=== PATIENT | male | born 1985 | race Caucasian/White ===

== ENCOUNTER 2017-04-02 00:52 | Emergency (ER) | payer OTHER ==
[2017-04-02] MEDS ORDERED: SODIUM CHLORIDE 0.9% 1,000 ML IV STA (01:40)
[2017-04-02] MEDS ORDERED: ONDANSETRON 4 MG/2 ML VIAL IVP STA (01:40)
[2017-04-02] MEDS ORDERED: KETOROLAC 30 MG/ML 1 ML VIAL IVP STA (01:40)
--- NOTE | 2017-04-02 02:05 | ED ---
Abdominal Pain HPI - General Chief Complaint: Abdominal Pain Stated Complaint: abd pain Time Seen by Provider: 04/02/17 01:05 Source: patient Mode of arrival: ambulatory Limitations: no limitations - History of Present Illness Initial Comments: 31-year-old male patient presented to the emergency department today for evaluation of left lower quadrant abdominal pain that radiated into his left lower back. Patient states that the pain does radiate down into the left groin as well. He states that symptoms started a few hours ago with a dull achiness side and progressed to severe sharp stabbing pain. He states that he has had symptoms similar to this one time in the past or was diagnosed with muscle spasms of the abdomen. He states he has vomited numerous times since pain onset. He states he does feel clammy. He denies any fever or chills. Denies any constipation or diarrhea. He denies any hematuria, dysuria, urinary urgency , urinary frequency. Patient denies any recent rash, shortness breath, chest pain, numbness, tingling, dizziness, weakness, headache, visual changes, or any other complaints. - Related Data Previous Rx's Medication Instructions Recorded Dicyclomine [Bentyl] 20 mg PO QID #24 tablet 05/27/15 Hydrocodone/Acetaminophen [[place] 1 tab PO Q6HR PRN #15 tab 04/02/17 5-325] Ibuprofen [Motrin] 600 mg PO Q8HR PRN #30 tab 04/02/17 Ondansetron [Zofran ODT] 4 mg PO Q8HR PRN #10 tab 04/02/17 Tamsulosin HCl [Flomax] 0.4 mg PO DAILY #7 cap 04/02/17 Allergies Allergy/AdvReac Type Severity Reaction Status Date / Time No Known Allergies Allergy Verified 04/02/17 00:57 Review of Systems ROS Statement: Those systems with pertinent positive or pertinent negative responses have been documented in the HPI. ROS Other: All systems not noted in ROS Statement are negative. Past Medical History Past Medical History: No Reported History History of Any Multi-Drug Resistant Organisms: None Reported Past Surgical History: No Surgical Hx Reported Past Psychological History: No Psychological Hx Reported Smoking Status: Current every day smoker Past Alcohol Use History: None Reported Past Drug Use History: Marijuana General Exam Limitations: no limitations General appearance: alert, other (This is a well-developed, well-nourished adult male patient in mild distress related to pain. Vital signs upon presentation are temperature 98.3F, pulse 81, respirations 16, blood pressure 131/78, pulse ox 99% on room air.) Eye exam: Present: normal appearance, PERRL, EOMI. Absent: scleral icterus, conjunctival injection, periorbital swelling ENT exam: Present: normal exam, normal oropharynx, mucous membranes moist Respiratory exam: Present: normal lung sounds bilaterally. Absent: respiratory distress, wheezes, rales, rhonchi, stridor Cardiovascular Exam: Present: regular rate, normal rhythm, normal heart sounds. Absent: systolic murmur, diastolic murmur, rubs, gallop, clicks GI/Abdominal exam: Present: soft, normal bowel sounds. Absent: distended, tenderness, guarding, rebound, rigid Back exam: Present: normal inspection. Absent: CVA tenderness (R), CVA tenderness (L) Neurological exam: Present: alert, oriented X3, CN II-XII intact Psychiatric exam: Present: normal affect, normal mood Skin exam: Present: warm, dry, intact, normal color. Absent: rash Course Vital Signs 04/02/17 00:54 Temperature 98.3 F Pulse Rate 81 Respiratory 16 Rate Blood Pressure 131/78 O2 Sat by Pulse 99 Oximetry Medical Decision Making - Medical Decision Making 31-year-old male patient presents to the emergency department today for evaluation of left flank pain that radiated into the left lower abdomen and into his groin. Physical examination was unremarkable. Urinalysis did show large amount of blood. Labs were otherwise unremarkable. KUB x-ray of the abdomen did show constipation-type pattern. CT the abdomen and pelvis did show a 4 mm partially obstructing stone in the left ureter. As well as multiple stones in bilateral kidneys. Patient will be discharged home today with prescriptions for pain management, nausea management, and Flomax. He is instructed to follow-up with urologist as possible. He is instructed to return here immediately if he develops any new, worsening, or concerning symptoms. He verbalizes understanding and agrees with this plan. - Lab Data Result diagrams: 04/02/17 01:38 04/02/17 01:38 Lab Results 04/02/17 04/02/17 04/02/17 Range/Units 01:38 01:38 01:38 WBC 10.3 (3.8-10.6) k/uL RBC 4.93 (4.30-5.90) m/uL Hgb 15.7 (13.0-17.5) gm/dL Hct 47.6 (39.0-53.0) % MCV 96.6 (80.0-100.0) fL MCH 31.8 (25.0-35.0) pg MCHC 32.9 (31.0-37.0) g/dL RDW 13.1 (11.5-15.5) % Plt Count 223 (150-450) k/uL Neutrophils % 54 % Lymphocytes % 31 % Monocytes % 8 % Eosinophils % 4 % Basophils % 1 % Neutrophils # 5.5 (1.3-7.7) k/uL Lymphocytes # 3.2 (1.0-4.8) k/uL Monocytes # 0.9 (0-1.0) k/uL Eosinophils # 0.4 (0-0.7) k/uL Basophils # 0.1 (0-0.2) k/uL Sodium 141 (137-145) mmol/L Potassium 4.0 (3.5-5.1) mmol/L Chloride 103 (98-107) mmol/L Carbon Dioxide 26 (22-30) mmol/L Anion Gap 12 mmol/L BUN 16 (9-20) mg/dL Creatinine 1.00 (0.66-1.25) mg/dL Est GFR (MDRD) Af Amer >60 (>60 ml/min/1.73 sqM) Est GFR (MDRD) Non-Af >60 (>60 ml/min/1.73 sqM) Glucose 106 H (74-99) mg/dL Calcium 10.3 H (8.4-10.2) mg/dL Total Bilirubin 0.3 (0.2-1.3) mg/dL AST 16 L (17-59) U/L ALT 25 (21-72) U/L Alkaline Phosphatase 59 (38-126) U/L Total Protein 6.8 (6.3-8.2) g/dL Albumin 4.3 (3.5-5.0) g/dL Amylase 52 (30-110) U/L Lipase 77 (23-300) U/L Urine Color Yellow Urine Appearance Clear (Clear) Urine pH 5.5 (5.0-8.0) Ur Specific [place] 1.020 (1.001-1.035) Urine Protein 1+ H (Negative) Urine Glucose (UA) Negative (Negative) Urine Ketones Trace H (Negative) Urine Blood Large H (Negative) Urine Nitrite Negative (Negative) Urine Bilirubin Negative (Negative) Urine Urobilinogen 2.0 (<2.0) mg/dL Ur Leukocyte Esterase Trace H (Negative) Urine RBC >182 H (0-5) /hpf Urine WBC 2 (0-5) /hpf Ur Squamous Epith Cells <1 (0-4) /hpf Urine Mucus Occasional H (None) /hpf - Radiology Data Radiology results: report reviewed, image reviewed KUB x-ray of the abdomen shows no free air and intraperitoneal space. Moderate stool burden within the colon. No dilation. Bones and joints are unremarkable. Impression by Dr. Anthony shows moderate colonic stool. Correlate for constipation per no evidence rupture and small bowel obstruction. Disposition Clinical Impression: Kidney stone Disposition: HOME SELF-CARE Condition: Good Instructions: Kidney Stones (ED), How to Strain Your Urine (ED) Additional Instructions: Strain all urine. Take medications as directed. Follow-up with the urologist as soon as possible. Return here immediately for any new, worsening, or concerning symptoms. Prescriptions: Hydrocodone/Acetaminophen [[place] 5-325] 1 tab PO Q6HR PRN #15 tab PRN Reason: Pain Ibuprofen [Motrin] 600 mg PO Q8HR PRN #30 tab PRN Reason: Pain Ondansetron [Zofran ODT] 4 mg PO Q8HR PRN #10 tab PRN Reason: Nausea Tamsulosin HCl [Flomax] 0.4 mg PO DAILY #7 cap Referrals: None,Stated [Primary Care Provider] - 1-2 days Claude Smiley MD [STAFF PHYSICIAN] - 1-2 days Time of Disposition: 03:17
[2017-04-02 02:06] LABS: Basophils # (A) 0.1 k/uL (0-0.2); Basophils % (A) 1 %; CH 32.3; CHCM 33.6; Eosinophils # (A) 0.4 k/uL (0-0.7); Eosinophils % (A) 4 %; HCT 47.6 % (39.0-53.0); HDW 2.02; HGB 15.7 gm/dL (13.0-17.5); Luc # (Auto) 0.21; Luc % (Auto) 2; Lymphocytes # (A) 3.2 k/uL (1.0-4.8); Lymphocytes % (A) 31 %; MCH 31.8 pg (25.0-35.0); MCHC 32.9 g/dL (31.0-37.0); MCV 96.6 fL (80.0-100.0); Monocytes # (A) 0.9 k/uL (0-1.0); Monocytes % (A) 8 %; Neutrophils # (A) 5.5 k/uL (1.3-7.7); Neutrophils % (A) 54 %; RBC 4.93 m/uL (4.30-5.90); RDW 13.1 % (11.5-15.5); WBC 10.3 k/uL (3.8-10.6); WBC (Perox) 10.11
[2017-04-02 02:12] LABS: Appearance,Urine Clear (Clear); Bilirubin,Urine Negative (Negative); Glucose,Urine (UA) Negative (Negative); Ketones,Urine Trace (Negative); Leukocyte Esterase,Urine Trace (Negative); Mucus,Urine Occasional /hpf; Nitrite,Urine Negative (Negative); PH, Urine 5.5 (5.0-8.0); Particle Count 3436; Protein,Urine 1+ (Negative); RBC,Urine >182 /hpf (0-5); Squamous Epithelial Cell,Urine <1 /hpf (0-4); UA Billing (MACRO vs. MICRO) MICRO; WBC,Urine 2 /hpf (0-5)
[2017-04-02 02:14] LABS: ALT 25 U/L (21-72); AST 16 U/L (17-59); Alkaline Phosphatase 59 U/L (38-126); Amylase 52 U/L (30-110); Anion Gap 12 mmol/L; Blood Urea Nitrogen 16 mg/dL (9-20); Calcium 10.3 mg/dL (8.4-10.2); Carbon Dioxide 26 mmol/L (22-30); Chloride 103 mmol/L (98-107); Glucose 106 mg/dL (74-99); Non-African American GFR(MDRD) >60 (>60 ml/min/1.73 sqM); Sodium 141 mmol/L (137-145); Total Bilirubin 0.3 mg/dL (0.2-1.3); Total Protein 6.8 g/dL (6.3-8.2)
--- NOTE | 2017-04-02 02:38 | XR ---
EXAM: XR Abdomen Complete, 2 or More Views CLINICAL HISTORY: Reason: abdominal pain TECHNIQUE: Frontal view of the abdomen/pelvis with upright view of the abdomen. COMPARISON: No relevant prior studies available. FINDINGS: Intraperitoneal space: No free air. Gastrointestinal tract: Moderate stool burden within the colon. No dilation. Bones/joints: Unremarkable. IMPRESSION: 1. Moderate colonic stool. Correlate for constipation. No evidence for upstream small bowel obstruction.
[2017-04-02] MEDS ORDERED: HYDROcodone/APAP 7.5-325MG 1 EACH TAB PO ONE (03:07)
[2017-04-02] MEDS ORDERED: TAMSULOSIN 0.4 MG CAP.ER.24H PO STA ×2 (03:08→03:16)
--- NOTE | 2017-04-02 03:13 | CT ---
EXAM: CT Abdomen and Pelvis Without Intravenous Contrast CLINICAL HISTORY: Reason: Pain TECHNIQUE: Axial computed tomography images of the abdomen and pelvis without intravenous contrast. CTDI is 5.1 mGy and DLP is 253.5 mGy-cm. This CT exam was performed using one or more of the following dose reduction techniques: automated exposure control, adjustment of the mA and/or kV according to patient size, and/or use of iterative reconstruction technique. Coronal and sagittal reformatted images were created and reviewed. COMPARISON: No relevant prior studies available. FINDINGS: Lower thorax: No acute findings. ABDOMEN: Liver: Unremarkable. Gallbladder and bile ducts: Unremarkable. No calcified stones. No ductal dilation. Pancreas: Unremarkable. No ductal dilation. Spleen: Unremarkable. No splenomegaly. Adrenals: Unremarkable. No mass. Kidneys and ureters: 4 mm calcification in the course of the distal left ureter, likely indicating a partially obstructing stone. There is minimal upstream hydroureteronephrosis. At least 3 nonobstructing left renal stones measuring up to 7 mm. There are at least 2 nonobstructing right renal stones measuring up to 4 mm. Stomach and bowel: Unremarkable. No obstruction. No mucosal thickening. Appendix: No findings to suggest acute appendicitis. PELVIS: Bladder: Minimal urinary bladder wall thickening, nonspecific due to underdistention. No stones. Reproductive: Unremarkable as visualized. ABDOMEN and PELVIS: Intraperitoneal space: Unremarkable. No free air. No significant fluid collection. Bones/joints: No acute fracture. No dislocation. Soft tissues: Unremarkable. Vasculature: Unremarkable. No abdominal aortic aneurysm. Lymph nodes: Unremarkable. No enlarged lymph nodes. IMPRESSION: 1. 4 mm stone within the distal left ureter with minimal upstream hydroureteronephrosis. 2. Scattered bilateral nonobstructing renal stones.
[2017-04-02] MEDS ORDERED: ONDANSETRON 4 MG ODT STARTER PACK 2 TAB BTL PO STA (03:17)
[2017-04-02] MEDS ORDERED: ACET/COD 300 MG/30 MG STARTER PACK 6 TAB BTL PO STA (03:17)
[2017-04-02 03:36] VITALS: BP 127/73; PULSE 78; RESP 17; TEMP 98.9
== END 2017-04-02 03:36 | disposition home or self-care (01) ==
LOC: EC 00:52
DX: N20.0 Calculus of kidney (principal); F17.200 Nicotine dependence, unspecified, uncomplicated
CPT/HCPCS: 99284; 96374; 96375; 36415; 80053; 82150; 83690; 85025; 81001; 74000; 74176; 96361; J2405; J1885; S0119